=== PATIENT | male | born 1960 | race Caucasian/White ===

== ENCOUNTER 2018-12-17 03:52 | Emergency (ER) | payer OTHER ==
[~2018-12-17] VITALS: Ht 177.8 cm; Wt 78.9 kg
[2018-12-17] MEDS ORDERED: ULTRAM50 MG PO (04:36)
== END 2018-12-17 04:59 | disposition home or self-care (01) ==
LOC: ER 03:52
DX: K08.89 Other specified disorders of teeth and supporting structures (principal)

== ENCOUNTER 2021-10-26 14:41 | Emergency (ER) | payer OTHER ==
[~2021-10-26] VITALS: Ht 177.8 cm; Wt 76.2 kg
[~2021-10-26 14:41] MED LIST: ULTRAM50 MG PO
== END 2021-10-26 21:19 | disposition designated cancer center or children's hospital (05) ==
LOC: ER 14:41
DX: R07.89 Other chest pain (principal); F41.8 Other specified anxiety disorders